=== PATIENT | male | born 1955 | race Caucasian/White ===

== ENCOUNTER 2022-02-19 13:46 | Emergency (ER) | payer MEDICARE ==
[2022-02-19 14:23] VITALS: TEMP 98.2
[2022-02-19 14:46] LABS: Basophils # (A) 0.1 k/uL (0-0.2); Basophils % (A) 1 %; Eosinophils # (A) 0.3 k/uL (0-0.7); Eosinophils % (A) 5 %; HCT 44.5 % (39.0-53.0); HGB 14.4 gm/dL (13.0-17.5); Lymphocytes # (A) 1.4 k/uL (1.0-4.8); Lymphocytes % (A) 25 %; MCH 30.1 pg (25.0-35.0); MCHC 32.3 g/dL (31.0-37.0); MCV 93.1 fL (80.0-100.0); Monocytes # (A) 0.4 k/uL (0-1.0); Monocytes % (A) 7 %; Neutrophils # (A) 3.4 k/uL (1.3-7.7); Neutrophils % (A) 60 %; Platelet Count 201 k/uL (150-450); RBC 4.78 m/uL (4.30-5.90); RDW 13.2 % (11.5-15.5); WBC 5.7 k/uL (3.8-10.6)
[2022-02-19 14:56] LABS: ALT 27 U/L (4-49); AST 25 U/L (17-59); African American GFR (CKD) >90 (>60 ml/min/1.73 sqM); Albumin 4.3 g/dL (3.5-5.0); Alkaline Phosphatase 68 U/L (38-126); Anion Gap 8 mmol/L; Blood Urea Nitrogen 19 mg/dL (9-20); Carbon Dioxide 27 mmol/L (22-30); Chloride 103 mmol/L (98-107); Glucose 96 mg/dL (74-99); Non-African American GFR(CKD) >90 (>60 ml/min/1.73 sqM); Potassium 4.5 mmol/L (3.5-5.1); Sodium 138 mmol/L (137-145); Total Bilirubin 0.5 mg/dL (0.2-1.3); Total Protein 7.2 g/dL (6.3-8.2)
--- NOTE | 2022-02-19 15:54 | US ---
EXAMINATION TYPE: US venous doppler duplex LE BI DATE OF EXAM: 02/19/2022 3:32 PM COMPARISON: NONE CLINICAL HISTORY: 66-year-old male swelling in both legs x 5 days. No hx of DVT. Patient does not elva e blood thinners. SIDE PERFORMED: Bilateral TECHNIQUE: The lower extremity deep venous system is examined utilizing real time linear array sonog [place] with graded compression, doppler sonography and color-flow sonography. FINDINGS: VESSELS IMAGED: Common Femoral Vein Deep Femoral Vein Greater Saphenous Vein * Femoral Vein Popliteal Vein Small Saphenous Vein * Proximal Calf Veins Posterior tibial veins Peroneal veins (* superficial vessels) Right Leg: Solid-appearing area of that is heterogeneous echogenic with shadowing at the site of pat ient's palpable concern anterior lower thigh. This seems to abut the underlying musculature and may b e located along the superficial fascia or within the superficial muscle layer. It measures 2.7 x 2.0 x 1.3 cm. No evidence of DVT in veins imaged. Left Leg: No evidence of DVT in veins imaged. IMPRESSION: 1. At the patient's palpable site along the anterior lower thigh, there is a 2.7 cm solid appearing a stoney with shadowing. Possibly along the superficial muscle fascia or within the superficial muscle lay er. Heterotopic ossification as a sequela of prior injury is possible. Some type of mesenchymal tumor is difficult to exclude. Recommend initial radiographic assessment. Subsequent CT and/or MRI may be needed. 2. Otherwise, no evidence for DVT within the bilateral lower extremities.
--- NOTE | 2022-02-19 17:54 | CT ---
Result: History: Right thigh mass Comparison: None available Technique: Noncontrast axial CT images of the right lower extremity/femur was obtained with images pr ovided in bone and soft tissue algorithm. Coronal and sagittal reformats were provided and reviewed. Automated dose control was used for this exam. Volumetric 3-D images generated on an independent workstation were provided and reviewed. Findings: There is prominence and mild enlargement of the right lateral vastus musculature. However no distinct lesion is identified on this noncontrast study. No fluid collection or soft tissue gas seen. No sign ificant lymphadenopathy. Benign mild calcification within the vastus intermedius seen. There is no acute fracture or dislocation of the imaged osseous structures. No bony destruction seen . Alignment is anatomic. No joint effusion is seen. Impression: Prominence and mild enlargement of the right lateral vasculature without distinct lesion identified o n this noncontrast study. Recommend contrast enhanced MRI for increased sensitivity No acute osseous abnormality.
--- NOTE | 2022-02-19 18:18 | ED ---
General Adult HPI - General Chief complaint: Extremity Problem,Nontraumatic Stated complaint: lt leg numb Time Seen by Provider: 02/19/22 16:00 Source: patient, RN notes reviewed, old records reviewed Mode of arrival: ambulatory Limitations: no limitations - History of Present Illness Initial comments: Patient is a 66-year-old male with past medical history remarkable for no significant past medical history presents emergency department concern for bi lateral lower extremity swelling. Left is slightly worse than right but both are present. Located in the calf down. Nontender. Some pitting edema. Has been present for the last few days. Was sent from PCP to rule out possible DVT. Patient also states he has a palpable node or mass located in the anterior right thigh. Has been present for 6 months. PCP is monitoring it. Denies any chest pain, shortness of breath, abdominal pain, nausea, vomiting. Denies any history of heart failure. Denies any history of blood clots. Is not on blood thinners. Presents for further evaluation at this time. - Related Data Allergies Allergy/AdvReac Type Severity Reaction Status Date / Time No Known Allergies Allergy Verified 02/19/22 14:23 Review of Systems ROS Statement: Those systems with pertinent positive or pertinent negative responses have been documented in the HPI. Review of Systems: CONST: Denies fever EYES: Denies blurry vision ENT: Denies nasal congestion C/V: Denies Chest pain RESP: Denies shortness of breath GI: Denies abdominal pain : Denies dysuria SKIN: Denies rash. MSK: Denies joint pain. NEURO: Denies headache ROS Other: All systems not noted in ROS Statement are negative. Past Medical History Past Medical History: No Reported History History of Any Multi-Drug Resistant Organisms: None Reported Past Surgical History: No Surgical Hx Reported Past Psychological History: No Psychological Hx Reported Smoking Status: Never smoker Past Alcohol Use History: Occasional Past Drug Use History: None Reported General Exam - General Exam Comments Initial Comments: General: Appears in no acute distress. HEAD: Normal with no signs of head trauma. EYES: PERRLA, EOMI, conjunctiva normal, no discharge. ENT: Hearing grossly intact, normal oropharynx. RESPIRATORY: Clear breath sounds bilaterally. No wheezes, rales, or rhonchi. C/V: Regular rate and rhythm. S1 and S2 auscultated, symmetrical 1+ pitting edema mid way up the calf bilaterally, peripheral pulses 2+ and intact throughout ABD: Abd is soft, nontender, nondistended EXT: Normal range of motion, no obvious deformity SKIN: No rashes or lesions observed on exposed skin. Palpable muscle no mass located over the anterior proximal right thigh. NEURO: Alert and oriented 4. No focal deficits. Limitations: no limitations Course Vital Signs 02/19/22 02/19/22 14:20 18:26 Temperature 98.2 F Pulse Rate 50 L 48 L Respiratory 20 16 Rate Blood Pressure 144/78 161/83 O2 Sat by Pulse 97 97 Oximetry Medical Decision Making - Medical Decision Making Based on the patient's presentation, there is concern for possible DVT in the left lower extremity versus possible heart failure. Workup was obtained in triage. This includes a venous duplex of bilateral lower extremities, basic labs, BNP. Vital signs are within normal limits. Laboratory studies were remarkable for a BNP within normal limits. Remainder of the laboratory studies are within normal limits. He is duplex shows no DVT bilaterally. The palpable mass in the anterior thigh, reveals a 2.7 cm solid-appearing area with shadowing. Believe it is superficial muscles nausea but recommended further imaging for further characterization. After the patient results of his labs and imaging. I did recommend we obtain a CT to further characterize the mass. He was in agreement this plan. CT revealed prominence and mild enlargement of the right lateral vastus musculature without distinct lesion. Recommended nonemergent MRI follow-up. I spoke with the patient regarding this, and he was in agreement with the plan. Will be discharged home with follow-up with his PCP. Recommended outpatient MRI. I discussed the leg swelling is likely secondary to dependent edema. I instructed the patient to follow up with their PCP in the next 1-3 days. I explained that the patient should return to the emergency department if they experience any worsening symptoms. Strict return precautions were discussed with the patient. The patient expressed understanding of these instructions. I answered all questions that the patient had. The patient was discharged home in good condition with their prescriptions and follow up information. - Lab Data Result diagrams: 02/19/22 14:25 02/19/22 14:25 Lab Results 02/19/22 02/19/22 02/19/22 Range/Units 14:25 14:25 14:25 WBC 5.7 (3.8-10.6) k/uL RBC 4.78 (4.30-5.90) m/uL Hgb 14.4 (13.0-17.5) gm/dL Hct 44.5 (39.0-53.0) % MCV 93.1 (80.0-100.0) fL MCH 30.1 (25.0-35.0) pg MCHC 32.3 (31.0-37.0) g/dL RDW 13.2 (11.5-15.5) % Plt Count 201 (150-450) k/uL MPV 7.0 Neutrophils % 60 % Lymphocytes % 25 % Monocytes % 7 % Eosinophils % 5 % Basophils % 1 % Neutrophils # 3.4 (1.3-7.7) k/uL Lymphocytes # 1.4 (1.0-4.8) k/uL Monocytes # 0.4 (0-1.0) k/uL Eosinophils # 0.3 (0-0.7) k/uL Basophils # 0.1 (0-0.2) k/uL Sodium 138 (137-145) mmol/L Potassium 4.5 (3.5-5.1) mmol/L Chloride 103 (98-107) mmol/L Carbon Dioxide 27 (22-30) mmol/L Anion Gap 8 mmol/L BUN 19 (9-20) mg/dL Creatinine 0.83 (0.66-1.25) mg/dL Est GFR (CKD-EPI)AfAm >90 (>60 ml/min/1.73 sqM) Est GFR (CKD-EPI)NonAf >90 (>60 ml/min/1.73 sqM) Glucose 96 (74-99) mg/dL Calcium 9.0 (8.4-10.2) mg/dL Total Bilirubin 0.5 (0.2-1.3) mg/dL AST 25 (17-59) U/L ALT 27 (4-49) U/L Alkaline Phosphatase 68 (38-126) U/L NT-Pro-B Natriuret Pep 172 pg/mL Total Protein 7.2 (6.3-8.2) g/dL Albumin 4.3 (3.5-5.0) g/dL Disposition Clinical Impression: Enlarged muscle, Dependent edema Disposition: HOME SELF-CARE Condition: Good Additional Instructions: Follow up with PCP. Need MRI to further evaluate the enlarged area on your right thigh. Mass is an enlarged muscle, recommend MRI for better characterization. Is patient prescribed a controlled substance at d/c from ED?: No Referrals: Adalberto Galindo DO [Primary Care Provider] - 1-2 days Time of Disposition: 18:15
[2022-02-19 18:27] VITALS: BP 161/83; PULSE 48; RESP 16
== END 2022-02-19 18:26 | disposition home or self-care (01) ==
LOC: EC 13:46
DX: R60.0 Localized edema (principal)
CPT/HCPCS: 36415; 80053; 83880; 85025; 93970; 99284